=== PATIENT | female | born 1995 | race Asian ===

== ENCOUNTER 2019-03-16 09:29 | Emergency (ER) | payer SELFPAY ==
[~2019-03-16] VITALS: Ht 162.6 cm; Wt 86.5 kg
[~2019-03-16 09:29] MED LIST: DENIES MEDS; IBUP-1542 PO; ONDA4TAB14 PO
[2019-03-16 09:57] VITALS: BP 142/80; PULSE 92; RESP 18; Ht 162.6 cm; Wt 86.5 kg
[2019-03-16] MEDS ORDERED: KETOROLAC 30 MG INJ IM STA (10:24)
[2019-03-16] MEDS ORDERED: PHENAZOPYRIDINE 100 MG TAB PO ONE (11:00)
== END 2019-03-16 10:56 | disposition home or self-care (01) ==
LOC: FTE 09:29
DX: R51 Headache (principal); R11.0 Nausea
CPT/HCPCS: 81025; 96372; 99284; J1885